=== PATIENT | male | born 1995 | race Two or more races ===

== ENCOUNTER 2024-09-15 22:25 | Emergency (ER) | payer MEDICAID, OTHER ==
[~2024-09-15] VITALS: Ht 177.8 cm; Wt 113.0 kg
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
[2024-09-15 23:13] LABS: Basophils # (auto) 0.1 10 ^3/uL (0-0.2); Basophils % (auto) 0.3 % (0.0-2.0); Eosinophils # (auto) 0.1 10 ^3/uL (0-0.8); Eosinophils % (auto) 0.5 % (0.0-7.0); Hematocrit 50.7 % (41.0-53.0); Lymphocytes # (auto) 2.4 10 ^3/uL (0.4-5.4); Lymphocytes % (auto) 12.1 % (10.0-50.0); Mean Corpuscular Hemoglobin 30.2 pg (28.0-32.0); Mean Corpuscular Hgb Conc. 33.4 g/dL (32.0-36.0); Mean Corpuscular Volume 90.4 fL (80.0-100.0); Monocytes # (auto) 1.4 10 ^3/uL (0-1.3); Monocytes % (auto) 6.8 % (0.0-12.0); Neutrophils # (auto) 16.3 10 ^3/uL (1.6-8.6); Neutrophils % (auto) 80.3 % (37.0-80.0); Nucleated Red Blood Cells % 0.1 %; Platelet Count (auto) 313 10^3/uL (140-450); Red Blood Cells 5.61 10^6/uL (4.5-5.90); Red Cell Distribution Width 13.1 % (11.8-14.3); White Blood Cell 20.3 10^3/uL (4.4-10.8)
[2024-09-16 00:01] LABS: Chloride 109 mmol/L (98-107); Potassium 3.8 mmol/L (3.5-5.1); Sodium 141 mmol/L (136-145)
[2024-09-16 00:02] LABS: Anion Gap 13 (5-15); Calcium 9.5 mg/dL (8.7-10.4); Carbon Dioxide 19 mmol/L (20-31)
[2024-09-16 00:07] LABS: BUN/Creatinine Ratio 9.9 (10.0-20.0); Blood Urea Nitrogen 9 mg/dL (9-23); Glucose 111 mg/dL (74-106)
[2024-09-16 00:30] LABS: Blood Alcohol 144.3 mg/dL (<10)
[2024-09-16] MEDS: HYDROcodone-ACET 10/325MG TAB PO ONE (00:36)
[2024-09-16 00:38] VITALS: TEMP 98.7
[2024-09-16] MEDS: cefTRIAXone SOD 1,000 MG VL IM ONE (03:24)
[2024-09-16 04:13] LABS: Urine Bacteria None Seen /hpf (None Seen)
[2024-09-16 04:31] LABS: Urine Blood 1+ /uL (Negative); Urine Clarity Clear (Clear); Urine Color Light-Yellow (Yellow); Urine Mucus FEW (None Seen); Urine Protein, UAD TRACE (Negative); Urine Specific Gravity 1.016 (1.001-1.035); Urine Urobilinogen Normal (Negative); Urine WBC 7 /hpf (0 - 3)
[2024-09-16 04:42] LABS: Amphetamine Screen, Urine Neg (NEGATIVE); Barbiturate Scree,Urine Neg (NEGATIVE); Benzodiazephine Screen, Urine Neg (NEGATIVE); Cocaine Screen, Urine Neg (NEGATIVE); Opiate Scree,Urine Neg (NEGATIVE); Phencyclidine Screen, Urine Neg (NEGATIVE)
[2024-09-16 04:43] LABS: Cannabinoid Screen, Urine Neg (NEGATIVE)
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
[2024-09-16 07:33] VITALS: PULSE 101; RESP 16; O2SAT 97
[2024-09-16] MEDS: SODIUM CHLORIDE 0.9% 1,000 ML IV SCH (11:00)
[2024-09-16] MEDS ORDERED: ONDANSETRON HCL 4 MG/2 ML VIAL IV PRN (11:00)
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
[2024-09-16] MEDS: IOHEXOL 300 MG/ML 100ML BOTTLE IJ ONE (11:24)
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
[2024-09-16] MEDS: DOCUSATE SOD 100 MG CAP PO PRN (12:46)
[2024-09-16] MEDS: MORPHINE SULFATE INJ 2 MG/ml SYRG IV PRN (15:21)
[2024-09-16 18:21] VITALS: BP 126/67; PULSE 118; RESP 18; O2SAT 99
== END 2024-09-16 17:15 | disposition short-term general hospital (02) ==
LOC: ER 22:25 → EDBD 22:25 → ER 09-16 17:15
DX: S52.592A Other fractures of lower end of left radius, initial encounter for closed fracture (principal); S52.612A Displaced fracture of left ulna styloid process, initial encounter for closed fracture; S00.81XA Abrasion of other part of head, initial encounter; D72.829 Elevated white blood cell count, unspecified; F10.90 Alcohol use, unspecified, uncomplicated; Z79.899 Other long term (current) drug therapy; V49.40XA Driver injured in collision with unspecified motor vehicles in traffic accident, initial encounter; Y93.I9 Activity, other involving external motion; Y92.89 Other specified places as the place of occurrence of the external cause; Y99.8 Other external cause status; Y90.0 Blood alcohol level of less than 20 mg/100 ml
CPT/HCPCS: 29125; 36415; 71260; 73090; 73110; 74177; 80048; 80307; 80320; 81001; 85025; 96361; 96372; 96374; 99285; J0696; J2270; J7030; Q9967